=== PATIENT | female | born 1995 ===

== ENCOUNTER 2017-09-28 18:38 | Emergency (ER) | payer OTHER ==
[2017-09-28] MEDS ORDERED: DESO1TAB34 PO (18:57)
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
[2017-09-28 21:00] VITALS: BP 127/81
== END 2017-09-28 21:04 | disposition home or self-care (01) ==
LOC: ER 19:00
DX: T74.21XA Adult sexual abuse, confirmed, initial encounter (principal); S40.012A Contusion of left shoulder, initial encounter; S40.011A Contusion of right shoulder, initial encounter; S20.02XA Contusion of left breast, initial encounter; S20.01XA Contusion of right breast, initial encounter; S30.1XXA Contusion of abdominal wall, initial encounter; S30.0XXA Contusion of lower back and pelvis, initial encounter; S70.02XA Contusion of left hip, initial encounter; S70.01XA Contusion of right hip, initial encounter; S70.12XA Contusion of left thigh, initial encounter; S70.11XA Contusion of right thigh, initial encounter
CPT/HCPCS: 99283

== ENCOUNTER → 2018-11-04 | Outpatient (CLI) | payer OTHER ==
[~2018-11-04] MED LIST: DESO1TAB34 PO
[2018-11-04 07:58] LABS: LDL CHOLESTEROL 99 mg/dl
== END ==
LOC: LAB 07:11
PROVIDERS: ATTEND Nurse Practitioner Psychiatric/Mental Health
DX: Z79.899 Other long term (current) drug therapy (principal)
CPT/HCPCS: 36415; 82040; 82247; 82310; 82374; 82435; 82465; 82565; 82947; 83718; 84075; 84132; 84155; 84295; 84450; 84460; 84478; 84520

== ENCOUNTER 2019-02-12 21:07 | Emergency (ER) | payer OTHER ==
--- NOTE | 2019-02-12 21:21 | ER Report ---
History and Physical Time Seen By MD: 21:18 HPI/ROS CHIEF COMPLAINT: vomiting and sore throat HISTORY OF PRESENT ILLNESS: This is a 23 year old female. She is having sore throat for a few days. Throat looks bad with exudates. Submandibular tenderness and swelling. No cough or shortness of breath. Fevers and chills. Nausea and 3 episodes of vomiting today. Feeling a little dehydrated Allergies: Coded Allergies: No Known Drug Allergies (Unverified , 09/28/17) Home Meds Active Scripts Ondansetron 4 Mg Odt (ONDANSETRON 4 MG ODT) 4 Mg Tab.rapdis, 4 MG PO Q6H PRN for NAUSEA/VOMITING, #20 TAB 0 Refills Prov:HAMLET HARDIN MD 02/12/19 Hydrocodone Bit/Acetaminophen (HYDROCODON-ACETAMINOPHEN 5-325) 1 Each Tablet, 1 EACH PO Q4H PRN for PAIN, #12 TAB 0 Refills Prov:HAMLET HARDIN MD 02/12/19 Amoxicillin (AMOXICILLIN) 500 Mg Capsule, 1 CAP PO Q8H, #30 CAPSULE 0 Refills Prov:HAMLET HARDIN MD 02/12/19 Reported Medications Bupropion Hcl (BUPROPION HCL SR) 100 Mg Tablet.er, 1 TAB PO QAM 02/12/19 Quetiapine Fumarate (SEROQUEL) 50 Mg Tablet, 50 MG PO QHS 02/12/19 Desogestrel-Ethinyl Estradiol (VELIVET) 1 Each Tablet, 1 EACH PO 09/28/17 Reviewed Nurses Notes: Yes Hx Substance Use Disorder: No Hx Alcohol Use: Yes (OCC.) Constitutional Vital Sign - Last 24 Hours 02/12/19 21:15 Temp 100.9 Pulse 108 Resp 20 B/P (MAP) 122/79 Pulse Ox 95 O2 Delivery Room Air Physical Exam General Appearance: Alert, no acute distress. Eyes: Pupils equal and round no injection. ENT: Normal oral mucosa. Moist mucous membranes. Posterior orophayrnx shows hypertropy, erythema, and exudates. Tympanic membranes are normal. Neck: Neck is supple and has tender lymphadenopathy submandibular. Respiratory: Lungs clear to auscultation. Cardiac: regular rate and rhythm Gastrointestinal: Abdomen is soft and non tender, bowel sounds normal. Skin: No rashes or lesions. DIFFERENTIAL DIAGNOSIS: After history and physical exam differential diagnosis was considered for sore throat meeting all Centor criteria for strep including exposure to two other people with strep diagnosed. Medical Decision Making Data Points Result Diagram: 02/12/19214902/12/192149 Laboratory Hematology Test 02/12/19 21:50 White Blood Count 10.2 k/uL (4.5-11.0) Red Blood Count 5.05 M/uL (4.17-5.56) Hemoglobin 16.3 g/dL (12.0-16.0) H Hematocrit 46.8 % (34.0-47.0) Mean Corpuscular Volume 92.6 fL (80.0-96.0) Mean Corpuscular Hemoglobin 32.2 pg (26.0-33.0) Mean Corpuscular Hemoglobin Concent 34.7 g/dL (32.0-36.0) Red Cell Distribution Width 12.0 % (11.5-14.5) Platelet Count 211 K/uL (150-450) Mean Platelet Volume 8.0 fL (7.2-11.1) Neutrophils (%) (Auto) 82.6 % (39.4-72.5) H Lymphocytes (%) (Auto) 6.7 % (17.6-49.6) L Monocytes (%) (Auto) 8.4 % (4.1-12.4) Eosinophils (%) (Auto) 0.2 % (0.4-6.7) L Basophils (%) (Auto) 2.1 % (0.3-1.4) H Nucleated RBC Relative Count (auto) 0.1 /100WBC Neutrophils # (Auto) 8.5 K/uL (2.0-7.4) H Lymphocytes # (Auto) 0.7 K/uL (1.3-3.6) L Monocytes # (Auto) 0.9 K/uL (0.3-1.0) Eosinophils # (Auto) 0.0 K/uL (0.0-0.5) Basophils # (Auto) 0.2 K/uL (0.0-0.1) H Nucleated RBC Absolute Count (auto) 0.01 K/uL Peripheral Blood Smear Yes Y/N Chemistry Test 02/12/19 21:50 Sodium Level 141 mmol/L (137-145) Potassium Level 3.3 mmol/L (3.5-5.0) Chloride Level 103 mmol/L (98-107) Carbon Dioxide Level 23 mmol/L (22-31) Blood Urea Nitrogen 6 mg/dl (7-18) Creatinine 0.60 mg/dl (0.52-1.04) Glomerular Filtration Rate Calc > 60.0 Random Glucose 100 mg/dl (75-110) Calcium Level 9.4 mg/dl (8.4-10.2) Total Bilirubin 0.6 mg/dl (0.2-1.3) Aspartate Amino Transf (AST/SGOT) 24 U/L (0-35) Alanine Aminotransferase (ALT/SGPT) 33 U/L (0-56) Alkaline Phosphatase 88 U/L (0-126) Total Protein 8.2 g/dl (6.3-8.2) Albumin 4.6 g/dl (3.5-5.0) Serology Test 02/12/19 21:25 Group A Streptococcus (PCR) Negative (NEGATIVE) Urinalysis Test 02/12/19 21:11 Urine Color Yellow Urine Clarity Slightly-cloudy Urine pH 6.0 pH (4.8-9.5) Urine Specific [place] 1.016 Urine Protein 30 mg/dL (NEGATIVE) Urine Glucose (UA) Negative mg/dL (NEGATIVE) Urine Ketones 20 mg/dL (NEGATIVE) Urine Blood Moderate (NEGATIVE) Urine Nitrite Negative (NEGATIVE) Urine Bilirubin Negative (NEGATIVE) Urine Urobilinogen Negative mg/dL (0.2-1.9) Urine Leukocyte Esterase Moderate (NEGATIVE) Urine RBC 23 /HPF (0-2/HPF) Urine WBC 241 /HPF (0-5/HPF) Urine WBC Clumps Few /HPF Urine Squamous Epithelial Cells Many /LPF (</=FEW) Urine Bacteria Few /HPF (NONE-FEW) Urine Mucus Few /HPF (NONE-FEW) ED Course/Re-evaluation ED Course Urinalysis does show cellular changes consistent with UTI, and rapid strep was negative. Based on positive Centor criteria, I still feel that this is strep and the test is a false negative. Treating with Amoxicillin to cover for possible urinary tract infection as well. Urine culture pending. Magic Mouthwash helped pain. She received a liter of normal saline and Zofran and feels a lot better now. See discharge instructions. Decision to Disposition Date: Feb 12, 2019 Decision to Disposition Time: 22:48 Depart Departure Latest Vital Signs Vital Signs Date Time Temp Pulse Resp B/P (MAP) Pulse Ox O2 Delivery O2 Flow Rate FiO2 02/12/19 21:15 100.9 108 20 122/79 95 Room Air Impression: Primary Impression: Strep pharyngitis Condition: Improved Disposition: HOME OR SELF-CARE New Scripts Ondansetron 4 Mg Odt (ONDANSETRON 4 MG ODT) 4 Mg Tab.rapdis 4 MG PO Q6H PRN for NAUSEA/VOMITING, #20 TAB 0 Refills Prov: HAMLET HARDIN MD 02/12/19 Hydrocodone Bit/Acetaminophen (HYDROCODON-ACETAMINOPHEN 5-325) 1 Each Tablet 1 EACH PO Q4H PRN for PAIN, #12 TAB 0 Refills Prov: HAMLET HARDIN MD 02/12/19 Amoxicillin (AMOXICILLIN) 500 Mg Capsule 1 CAP PO Q8H, #30 CAPSULE 0 Refills Prov: HAMLET HARDIN MD 02/12/19 Patient Instructions: Strep Throat (ED) Additional Instructions: While your strep test was negative, you meet all the criteria for strep throat and we think that that is what you have. You had some changes in the urine as well that could represent a urinary tract infection. We are starting you on Amoxicillin 500mg three times a day. Take Lortab 5/325, one every 4 hours as needed for severe pain. Take Ibuprofen 200mg over the counter tablets, 3 tablets every 6 hours as needed for pain. Take Zofran 4mg, one every 6 hours as needed for nausea or vomiting. Rest and increase fluid intake. Magic mouthwash, 1 teaspoon swish, gargle and swallow every 4 hours as needed for severe throat pain. HAMLET HARDIN MD Feb 12, 2019 21:21
[2019-02-12] MEDS ORDERED: QUET50TA21 PO (21:22)
[2019-02-12] MEDS ORDERED: BUPR-134 PO (21:22)
[2019-02-12] MEDS ORDERED: ONDANSETRON 4 MG/2 ML VIAL IVP ONE (21:30)
[2019-02-12] MEDS ORDERED: KETOROLAC 30 MG/ML VIAL IVP ONE (21:30)
[2019-02-12] MEDS ORDERED: NS(*) 0.9% 1000 ML BAG 1,000 ML IV ONE (21:30)
[2019-02-12] MEDS ORDERED: MAGIC MOUTHWASH 90 ML BTL PO ONE (21:30)
[2019-02-12 22:00] VITALS: BP 108/81
[2019-02-12 22:04] LABS: PLATELET COUNT, AUTOMATED 211 K/uL (150-450)
[2019-02-12] MEDS ORDERED: LIDOCAINE 2% VISC SLN 15ML UDC PO ONE (22:05)
[2019-02-12] MEDS ORDERED: ACET/HYDROC 5/325MG TH ER ONLY 2 TAB/BOTTLE PO ONE (22:05)
[2019-02-12] MEDS ORDERED: MAG HYD/AL HYD/SIMETH 30ML UDC PO ONE (22:05)
[2019-02-12] MEDS ORDERED: ONDANSETRON 4 MG ODT TH SL ONE (22:05)
[2019-02-12] MEDS ORDERED: AMOXICILLIN 500 MG CAP PO ONE (22:05)
[2019-02-12] MEDS ORDERED: ONDA4TAB9 PO (22:53)
[2019-02-12] MEDS ORDERED: AMOX-362 PO (22:53)
[2019-02-12] MEDS ORDERED: LOR5/325 PO (22:53)
== END 2019-02-12 23:06 | disposition home or self-care (01) ==
LOC: ER 21:25
DX: J02.0 Streptococcal pharyngitis (principal); E86.0 Dehydration; R68.83 Chills (without fever)
CPT/HCPCS: 81001; 85025; 87088; 87653; 96374; 96375; 99284; J1885; J2405; J7030; Q0163; S0119; 82040; 82247; 82310; 82374; 82435; 82565; 82947; 84075; 84132; 84155; 84295; 84450; 84460; 84520; 96361